=== PATIENT | male | born 1965 | race Caucasian/White ===

== ENCOUNTER 2016-09-12 08:25 | Outpatient (CLI) | payer BC, OTHER ==
[2016-09-12 15:07] LABS: BASOPHILS % (AUTO) 0.7 %; EOSINOPHILS # (AUTO) 0.1 10^3/uL (0.0-0.7); EOSINOPHILS % (AUTO) 2.2 %; HCT - HEMATOCRIT 44.8 % (42.0-52.0); HGB - HEMOGLOBIN 15.9 g/dL (14.0-18.0); LYMPHOCYTES # (AUTO) 2.3 10^3/uL (1.5-3.5); LYMPHOCYTES % (AUTO) 43.3 %; MEAN CORPUSCULAR HEMOGLOBIN 32.3 pg (27.0-31.0); MEAN CORPUSCULAR HGB CONC 35.5 g/dL (32.0-36.0); MEAN CORPUSCULAR VOLUME 90.8 fL (80.0-94.0); MEAN PLATELET VOLUME 8.6 fL (7.4-11.4); MONOCYTES # (AUTO) 0.4 10^3/uL (0.0-1.0); MONOCYTES % (AUTO) 8.5 %; NEUTROPHILS # (AUTO) 2.4 10^3/uL (1.5-6.6); NEUTROPHILS % (AUTO) 45.3 %; NUCLEATED RED BLOOD CELLS AUTO 0.1 /100WBC; RED BLOOD COUNT 4.94 10^6/uL (4.70-6.10); RED CELL DISTRIBUTION WIDTH 13.5 % (12.0-15.0); UNCORRECTED WHITE BLOOD COUNT 5.2 x10^3/uL; WHITE BLOOD COUNT 5.2 x10^3/uL (4.8-10.8)
[2016-09-12 16:20] LABS: ALBUMIN/GLOBULIN RATIO 1.9 (1.0-2.2); BILIRUBIN,TOTAL 1.2 mg/dL (0.2-1.0); BUN - BLOOD UREA NITROGEN 24 mg/dL (6-20); CALCIUM 9.5 mg/dL (8.5-10.3); CARBON DIOXIDE - CO2 29 mmol/L (21-32); CHLORIDE 100 mmol/L (101-111); CHOL/HDL RATIO 6.2 (<5.0); CHOLESTEROL 247 mg/dL; CREATININE 0.9 mg/dL (0.6-1.2); GFR - MDRD 89 (>89); GLUCOSE 116 mg/dL (70-100); HDL CHOLESTEROL 40 mg/dL; POTASSIUM 3.8 mmol/L (3.5-5.0); SODIUM 137 mmol/L (135-145); TOTAL PROTEIN 7.2 g/dL (6.7-8.2); TRIGLYCERIDES 237 mg/dL; VLDL CHOLESTEROL 47 mg/dL
== END 2016-09-12 08:26 | disposition home or self-care (01) ==
LOC: LAB.WCP 08:25
PROVIDERS: ATTEND Family Medicine
DX: E88.81 Metabolic syndrome and other insulin resistance (principal); Z12.5 Encounter for screening for malignant neoplasm of prostate
CPT/HCPCS: 36415; 80053; 80061; 84153; 84443; 85025

== ENCOUNTER 2019-03-12 19:44 | Outpatient (CLI) | payer OTHER | END 2019-03-12 23:59 | disposition critical access hospital (66) | LOC: EMS 19:44 | PROVIDERS: ATTEND Surgery | DX: R68.84 Jaw pain (principal); R07.9 Chest pain, unspecified; R42 Dizziness and giddiness | CPT/HCPCS: A0425; A0427 ==

== ENCOUNTER 2019-03-12 20:01 | Emergency (ER) | payer OTHER ==
--- NOTE | 2019-03-12 20:23 | ED Physician Documentation ---
PD HPI CHEST PAIN - Stated complaint Stated Complaint: CP/ L JAW PAIN - Chief complaint Chief Complaint: Cardiac - History obtained from History obtained from: Patient, EMS - History of Present Illness Timing - onset: Enter time (0), Today Timing - onset during: Light activity Timing - duration: Minutes Timing - details: Abrupt onset, Still present (much improved) Quality: Pressure, Tightness, Aching Location: Substernal, Left chest Radiation: Jaw Improved by: ASA, Other (fluids) Worsened by: Exertion Associated symptoms: Feeling faint / dizzy, General Weakness, Cough. No: Shortness of air, Diaphoresis, Nausea Similar symptoms before: Has not had sx before Recently seen: Not recently seen - Additional information Additional information: 53-year-old male with a history of hypertension has had a cough over the past week and this evening he was standing in his kitchen talking to his daughter when he developed pain in his jaw that then radiated into his chest. He went to lay down was a bit diaphoretic and called the medics. The patient was pale and diaphoretic on arrival of the medics with a bradycardia and hypotension. He was administered saline and aspirin and his blood pressure and pulse normalized. He is brought to the hospital with a prolonged QT interval and LVH on his electrocardiogram. The patient has a history of hypertension and is on some hydrochlorothiazide. He has otherwise been healthy has had a plate in his arm from a fracture in his 20s and surgery for an undescended testicle. He does not have a family history of coronary disease that he is aware of and he does have a family history of hypertension. The patient has previously been seen at [facility] by Dr. Malinda Roberto for his hypertension. Review of Systems Constitutional: denies: Fever, Chills, Myalgias, Fatigue Eyes: denies: Decreased vision Ears: denies: Ear pain Nose: reports: Congestion. denies: Rhinorrhea / runny nose Throat: denies: Sore throat Cardiac: reports: Chest pain / pressure. denies: Palpitations, Pedal edema, Calf pain Respiratory: reports: Dyspnea, Cough. denies: Hemoptysis, Wheezing GI: denies: Abdominal Pain, Nausea, Vomiting, Constipation, Diarrhea : denies: Dysuria, Frequency Skin: denies: Rash Musculoskeletal: reports: Neck pain. denies: Back pain, Extremity pain Neurologic: denies: Generalized weakness, Focal weakness, Numbness PD PAST MEDICAL HISTORY - Past Medical History Cardiovascular: Hypertension - Allergies Allergies/Adverse Reactions: Allergies Allergy/AdvReac Type Severity Reaction Status Date / Time No Known Drug Allergies Allergy Verified 03/12/19 20:06 PD ED PE NORMAL - Vitals Vital signs reviewed: Yes (diastolic hypertension) - General General: Alert and oriented X 3, No acute distress, Well developed/nourished, Other (Patient with good color and appears comfortable on arrival to the ED) - HEENT HEENT: Atraumatic, PERRL, EOMI - Neck Neck: Supple, no meningeal sign, No bony TTP - Cardiac Cardiac: RRR, No murmur - Respiratory Respiratory: No respiratory distress, Clear bilaterally - Abdomen Abdomen: Soft, Non tender - Back Back: No CVA TTP, No spinal TTP - Derm Derm: Normal color, Warm and dry, No rash - Extremities Extremities: No deformity, No edema - Neuro Neuro: Alert and oriented X 3, clinical director 2-12 intact, No motor deficit, No sensory deficit, Normal speech Eye Opening: Spontaneous Motor: Obeys Commands Verbal: Oriented GCS Score: 15 - Psych Psych: Normal mood, Normal affect Results - Vitals Vitals: Vital Signs - 24 hr 03/12/19 03/12/19 20:06 21:23 Temperature 36.6 C Heart Rate 69 56 L Respiratory 14 15 Rate Blood Pressure 122/89 H 112/73 O2 Saturation 97 96 Oxygen O2 Source Room air - EKG (time done) 2004 Rate: Rate (enter#) (53) [place]: LAD Intervals: Prolonged QT QRS: LVH, Poor R wave progression Ischemia: ST elevation c/w ischemia (subtle V2,V3 consistent with LVH), Non specific changes (lateral T wave inversions ) Compare to prior EKG: Old EKG unavailable Computer interpretation: Agree with computer - Labs Labs: Laboratory Tests 03/12/19 03/12/19 03/12/19 20:32 20:32 20:32 WBC 11.0 H RBC 4.52 L Hgb 14.7 Hct 39.9 L MCV 88.3 MCH 32.5 H MCHC 36.8 H RDW 13.1 Plt Count 127 L MPV 9.6 Neut # (Auto) 7.4 H Lymph # (Auto) 2.7 Rankin # (Auto) 0.6 Eos # (Auto) 0.2 Baso # (Auto) 0.1 Absolute Nucleated RBC 0.00 Nucleated RBC % 0.0 D-Dimer > 1050.0 H Sodium 138 Potassium 2.8 L Chloride 98 L Carbon Dioxide 30 Anion Gap 10.0 BUN 19 Creatinine 0.9 Estimated GFR (MDRD) 88 L Glucose 127 H Calcium 8.3 L Total Bilirubin 0.9 AST 21 ALT 25 Alkaline Phosphatase 47 Troponin I High Sens B-Natriuretic Peptide Total Protein 6.2 L Albumin 4.4 Globulin 1.8 L Albumin/Globulin Ratio 2.4 H Lipase 35 03/12/19 03/12/19 20:32 20:32 WBC RBC Hgb Hct MCV MCH MCHC RDW Plt Count MPV Neut # (Auto) Lymph # (Auto) Rankin # (Auto) Eos # (Auto) Baso # (Auto) Absolute Nucleated RBC Nucleated RBC % D-Dimer Sodium Potassium Chloride Carbon Dioxide Anion Gap BUN Creatinine Estimated GFR (MDRD) Glucose Calcium Total Bilirubin AST ALT Alkaline Phosphatase Troponin I High Sens 5.5 B-Natriuretic Peptide 21 Total Protein Albumin Globulin Albumin/Globulin Ratio Lipase - Rads (name of study) chest Radiology: Prelim report reviewed (Impression: Normal single view chest. ), EMP read indepedently, See rad report CT angio chest Radiology: Prelim report reviewed (Impression: Ascending aortic aneurysm with a type A dissection ending at the distal aortic arch. True lumen supplies 3 arch vessels.), EMP read indepedently, See rad report Procedures - Bedside sono Bedside sono by EMP: With the use of bedside ultrasound the heart is imaged and there does appear to be a pericardial effusion that is not causing tampenode. - IVC sono (time) 2012 Bedside IVC sono: IVC measures (cm) (2.3), IVC collapsed c insp (cm) (2.3), High CVP PD MEDICAL DECISION MAKING - ED course Complexity details: reviewed old records, reviewed results, re-evaluated patient, considered differential, d/w patient, d/w family ED course: 53-year-old male with acute jaw pain radiating into his chest was hypotensive at the scene improved with some fluids was found to have pericardial effusion on bedside ultrasound wide mediastinum on plain chest x-ray and aortic dissection on CT angiogram. The dissection looks like a type A dissection and Debakey classification type II. Transfer center was contacted at 21:45. Dr. Khan cardiothoracic surgeon at [facility] calls to the ED willing to accept the patient pending bed space availability. The [place] triage doctor calls here to inform us there is no bed available and the [facility] transfer center calls back able to take the patient and awaiting his arrival. [facility] surgeon Dr. Celaya is able to accept the patient at the [facility] and he will be transferred directly to the emergency department 22:45. 22:47 [facility] calls back able to accept the patient. The patient would prefer to go to [facility] where his brother works as a pediatric surgeon and final arrangements are made to transfer the patient to [facility]. The recommendation is to use cardene for blood pressure control as the heart rate is already in the low 60 range. The p isabel leaves the department here with stable vital signs and no neurologic deficit. Departure - Departure Disposition: 02 Transfer Acute Care Hosp Clinical Impression: Aortic dissection, thoracic Condition: Serious Discharge Date/Time: 03/12/19 23:05
[2019-03-12 20:36] LABS: BASOPHILS # (AUTO) 0.1 10^3/uL (0.0-0.1); BASOPHILS % (AUTO) 0.5 %; EOSINOPHILS # (AUTO) 0.2 10^3/uL (0.0-0.7); EOSINOPHILS % (AUTO) 1.5 %; HGB - HEMOGLOBIN 14.7 g/dL (14.0-18.0); LYMPHOCYTES # (AUTO) 2.7 10^3/uL (1.5-3.5); LYMPHOCYTES % (AUTO) 24.6 %; MEAN CORPUSCULAR HEMOGLOBIN 32.5 pg (27.0-31.0); MEAN CORPUSCULAR HGB CONC 36.8 g/dL (32.0-36.0); MEAN CORPUSCULAR VOLUME 88.3 fL (80.0-94.0); MEAN PLATELET VOLUME 9.6 fL (7.4-11.4); MONOCYTES # (AUTO) 0.6 10^3/uL (0.0-1.0); MONOCYTES % (AUTO) 5.7 %; NEUTROPHILS # (AUTO) 7.4 10^3/uL (1.5-6.6); NEUTROPHILS % (AUTO) 67.2 %; PLT - PLATELET COUNT 127 10^3/uL (130-450); RED BLOOD COUNT 4.52 10^6/uL (4.70-6.10); RED CELL DISTRIBUTION WIDTH 13.1 % (12.0-15.0)
[2019-03-12] MEDS ORDERED: IOVERSOL 320 100 ML VIAL IVP ONE ×2 (20:39→21:25)
[2019-03-12 20:54] LABS: ALBUMIN 4.4 g/dL (3.2-5.5); ALBUMIN/GLOBULIN RATIO 2.4 (1.0-2.2); BILIRUBIN,TOTAL 0.9 mg/dL (0.2-1.0); CALCIUM 8.3 mg/dL (8.5-10.3); CREATININE 0.9 mg/dL (0.6-1.2); TOTAL PROTEIN 6.2 g/dL (6.7-8.2)
[2019-03-12] MEDS ORDERED: POTASSIUM CHLOR 10 MEQ/100 ML 10 MEQ/100 ML BAG IV SCH (21:00)
--- NOTE | 2019-03-12 21:02 | XRAY Report ---
Reason: chest pain Procedure Date: 03/12/2019 Accession Number: [id number] / [id number] Procedure: XR - Chest 1 View X-Ray CPT Code: 58255 Final Report FULL RESULT: EXAM: CHEST RADIOGRAPHY EXAM DATE: 03/12/2019 08:26 PM. CLINICAL HISTORY: Chest pain. Cough for 2 weeks. COMPARISON: None. TECHNIQUE: 1 view. FINDINGS: Lungs/Pleura: No focal opacities evident. No pleural effusion. No pneumothorax. Mediastinum: Within exam limitations, the cardiomediastinal contour is normal. Other: None. IMPRESSION: Normal single view chest. RADIA
[2019-03-12] MEDS: IOVERSOL 320 100 ML VIAL IVP ONE ×2 (21:18→22:23)
[2019-03-12 21:23] VITALS: BP 112/73
--- NOTE | 2019-03-12 21:52 | CT Report ---
Reason: widened mediastinum Procedure Date: 03/12/2019 Accession Number: [id number] / [id number] Procedure: CT - ANGIO CHEST W/WO CPT Code: Final Report FULL RESULT: EXAM: CT ANGIOGRAM CHEST EXAM DATE: 03/12/2019 09:14 PM. CLINICAL HISTORY: Widened mediastinum. Productive cough for 2 weeks. COMPARISON: None. TECHNIQUE: Routine helical imaging was performed through the chest in the pulmonary arterial phase. IV Contrast: CE. Reconstructions: Coronal 3-D MIP reconstructions.Sagittal and coronal. In accordance with CT protocol optimization, one or more of the following dose reduction techniques were utilized for this exam: automated exposure control, adjustment of mA and/or KV based on patient size, or use of iterative reconstructive technique. FINDINGS: Pulmonary Arteries: Diagnostic quality: Adequate through the segmental arteries. No evidence for acute or chronic pulmonary emboli. RV/LV is within normal limits. There is no interventricular septal bowing. There is no reflux of contrast material in the IVC. Lungs/Pleura: No consolidation, nodules, or edema. No effusions or pneumothorax. Mediastinum: Dense pericardial effusion, likely hemorrhagic, 2 9 mm thick. No cardiac enlargement or adenopathy. Thoracic Aorta: The root of the aorta is 5.7 cm in diameter. The proximal arche is 3.7 cm in diameter. The distal arche is 3.3 cm in diameter. Partially outlined type A dissection noted with inadequate opacification to outline the distal arch and descending aorta detail. Upper Abdomen: Unremarkable. Other: None. IMPRESSION: 1. Type A aortic dissection, incompletely evaluated due to lack of contrast opacification of the arch and descending aorta, with a diameter of 5.7 cm at the root of the aorta, 3.7 cm proximal arch, 3.3 cm distal arch. 2. Small pericardial effusion, likely hemorrhagic. 3. Nondilated descending aorta and upper abdominal aorta, with insufficient contrast opacification to rule out dissection. RADIA The critical result notification system was initiated by Dr. Shahbaz Diane at 09:44 PM on 03/12/2019. The above critical result findings were discussed with Tom Tate by Dr. Shahbaz Diane at 09:48 PM on 03/12/2019.
--- NOTE | 2019-03-12 22:39 | CT Report ---
Reason: aortic disection Procedure Date: 03/12/2019 Accession Number: [id number] / [id number] Procedure: CT - ANGIO CHEST W/WO CPT Code: Final Report FULL RESULT: EXAM: CTA CHEST EXAM DATE: 03/12/2019 10:15 PM. CLINICAL HISTORY: Aortic dissection. Adequate aortic opacification on prior exam. COMPARISON: CHEST ANGIO 03/12/2019 9:12 PM. TECHNIQUE: Prior to and following intravenous administration of 80 cc of Optiray 320, multiplanar 3D/MIP reconstruction of the thoracic aorta was performed. In accordance with CT protocol optimization, one or more of the following dose reduction techniques were utilized for this exam: automated exposure control, adjustment of mA and/or KV based on patient size, or use of iterative reconstructive technique. FINDINGS: Vascular Structures: Ascending aortic aneurysm with a maximum diameter of 5.7 cm at the root of the aorta, 3.7 cm proximal arch, 3.3 cm distal arch. Type A dissection, ending at the distal arch, with the true lumen supplying the 3 arch vessels. No propagation into the normal thoracic and upper abdominal aorta. Lungs/Pleura: No consolidation, nodules, or edema. No effusions or pneumothorax. Mediastinum: Stable dense pericardial effusion up to 9 mm thick. No cardiac enlargement or adenopathy. Upper Abdomen: Unremarkable. Other: None. IMPRESSION: Ascending aortic aneurysm with type A dissection, ending at the distal aortic arch. The true lumen supplies the 3 arch vessels. RADIA
[2019-03-13] MEDS: IOVERSOL 320 100 ML VIAL IVP ONE (07:28)
== END 2019-03-12 23:05 | disposition short-term general hospital (02) ==
LOC: EDUNIT# → ED 20:01
DX: I71.01 Dissection of thoracic aorta (principal); I10 Essential (primary) hypertension
CPT/HCPCS: 36415; 71045; 71275; 80053; 83690; 83880; 84484; 85025; 85379; 93005; 99284; 99285; Q9967

== ENCOUNTER 2019-03-28 08:00 | Outpatient (CLI) | payer OTHER ==
[2019-03-28 18:48] LABS: BASOPHILS % (AUTO) 0.5 %; EOSINOPHILS # (AUTO) 0.2 10^3/uL (0.0-0.7); EOSINOPHILS % (AUTO) 2.1 %; LYMPHOCYTES # (AUTO) 1.4 10^3/uL (1.5-3.5); LYMPHOCYTES % (AUTO) 16.4 %; MEAN CORPUSCULAR HEMOGLOBIN 31.4 pg (27.0-31.0); MEAN CORPUSCULAR HGB CONC 32.3 g/dL (32.0-36.0); MEAN CORPUSCULAR VOLUME 97.4 fL (80.0-94.0); MEAN PLATELET VOLUME 8.9 fL (7.4-11.4); MONOCYTES # (AUTO) 0.6 10^3/uL (0.0-1.0); MONOCYTES % (AUTO) 7.8 %; NEUTROPHILS % (AUTO) 72.5 %; PLT - PLATELET COUNT 544 10^3/uL (130-450); RED CELL DISTRIBUTION WIDTH 13.8 % (12.0-15.0); WHITE BLOOD COUNT 8.2 x10^3/uL (4.8-10.8)
[2019-03-28 18:51] LABS: FERRITIN 626.9 ng/mL (23.9-336.2)
[2019-03-28 18:56] LABS: ALBUMIN 3.7 g/dL (3.2-5.5); ALBUMIN/GLOBULIN RATIO 1.1 (1.0-2.2); BILIRUBIN,TOTAL 0.4 mg/dL (0.2-1.0); CALCIUM 9.5 mg/dL (8.5-10.3); CREATININE 0.8 mg/dL (0.6-1.2); TOTAL PROTEIN 7.1 g/dL (6.7-8.2)
== END 2019-03-28 23:59 | disposition home or self-care (01) ==
LOC: LAB.WCP 08:00
PROVIDERS: ATTEND Family Medicine
DX: I10 Essential (primary) hypertension (principal); D64.9 Anemia, unspecified
CPT/HCPCS: 36415; 80053; 82728; 83540; 84443; 84466; 85025

== ENCOUNTER 2019-06-14 08:18 | Outpatient (CLI) | payer OTHER ==
[2019-06-14 13:00] LABS: BASOPHILS % (AUTO) 0.6 %; EOSINOPHILS # (AUTO) 0.2 10^3/uL (0.0-0.7); EOSINOPHILS % (AUTO) 2.9 %; HGB - HEMOGLOBIN 14.7 g/dL (14.0-18.0); LYMPHOCYTES # (AUTO) 1.6 10^3/uL (1.5-3.5); LYMPHOCYTES % (AUTO) 31.7 %; MEAN CORPUSCULAR HEMOGLOBIN 29.7 pg (27.0-31.0); MEAN CORPUSCULAR HGB CONC 33.4 g/dL (32.0-36.0); MEAN CORPUSCULAR VOLUME 88.9 fL (80.0-94.0); MEAN PLATELET VOLUME 10.7 fL (7.4-11.4); MONOCYTES # (AUTO) 0.4 10^3/uL (0.0-1.0); MONOCYTES % (AUTO) 8.1 %; NEUTROPHILS # (AUTO) 2.9 10^3/uL (1.5-6.6); NEUTROPHILS % (AUTO) 56.5 %; PLT - PLATELET COUNT 154 10^3/uL (130-450); RED BLOOD COUNT 4.95 10^6/uL (4.70-6.10); RED CELL DISTRIBUTION WIDTH 13.3 % (12.0-15.0); WHITE BLOOD COUNT 5.2 x10^3/uL (4.8-10.8)
[2019-06-14 13:13] LABS: ALBUMIN 4.4 g/dL (3.2-5.5); ALBUMIN/GLOBULIN RATIO 1.6 (1.0-2.2); ALKALINE PHOSPHATASE 73 IU/L (42-121); ALT ALANINE AMINOTRANSFERASE 17 IU/L (10-60); AST ASPARTATE AMINOTRANSFERASE 17 IU/L (10-42); BILIRUBIN,TOTAL 0.8 mg/dL (0.2-1.0); BUN - BLOOD UREA NITROGEN 17 mg/dL (6-20); CALCIUM 9.1 mg/dL (8.5-10.3); CARBON DIOXIDE - CO2 25 mmol/L (21-32); CHLORIDE 106 mmol/L (101-111); CHOLESTEROL 181 mg/dL; CREATININE 0.7 mg/dL (0.6-1.2); GLUCOSE 105 mg/dL (70-100); HDL CHOLESTEROL 36 mg/dL; LDL CHOLESTEROL,CALCULATED 125 mg/dL; LDL/HDL RATIO 3.5 (<3.6); SODIUM 137 mmol/L (135-145); TOTAL PROTEIN 7.1 g/dL (6.7-8.2); VLDL CHOLESTEROL 20 mg/dL
[2019-06-14 13:18] LABS: CREATININE,URINE 205.8 mg/dL; MICROALBUM/CREATININE RATIO,UR 7.3 ug/mg (<30.0); MICROALBUMIN,URINE 1.5 mg/dL (0-300.0)
[2019-06-14 13:20] LABS: HB2 TOTAL 15.4 g/dL; HEMOGLOBIN A1C 0.49 g/dL; HEMOGLOBIN A1C % 5.1 % (4.6-6.2)
== END 2019-06-14 23:59 | disposition home or self-care (01) ==
LOC: LAB.WCP 08:18
PROVIDERS: ATTEND Family Medicine
DX: D64.9 Anemia, unspecified (principal); I10 Essential (primary) hypertension; I71.00 Dissection of unspecified site of aorta; E88.81 Metabolic syndrome and other insulin resistance; E78.5 Hyperlipidemia, unspecified; Z12.5 Encounter for screening for malignant neoplasm of prostate
CPT/HCPCS: 36415; 80053; 80061; 82043; 82570; 83036; 83721; 84153; 84443; 85025

== ENCOUNTER 2020-02-25 08:20 | Outpatient (CLI) | payer OTHER ==
[2020-02-25 13:47] LABS: CALCIUM 9.4 mg/dL (8.5-10.3); CREATININE 0.8 mg/dL (0.6-1.2)
== END 2020-02-25 08:21 | disposition home or self-care (01) ==
LOC: LAB.WCP 08:20
PROVIDERS: ATTEND Nurse Practitioner
DX: I10 Essential (primary) hypertension (principal); Z98.890 Other specified postprocedural states; Z86.79 Personal history of other diseases of the circulatory system
CPT/HCPCS: 36415; 80048

== ENCOUNTER 2020-04-10 08:54 | Outpatient (CLI) | payer OTHER ==
[2020-04-10 13:02] LABS: CHOL/HDL RATIO 2.9 (<5.0); CHOLESTEROL 103 mg/dL; HDL CHOLESTEROL 35 mg/dL; LDL CHOLESTEROL,CALCULATED 55 mg/dL; LDL/HDL RATIO 1.6 (<3.6); VLDL CHOLESTEROL 13 mg/dL
== END 2020-04-10 23:59 | disposition home or self-care (01) ==
LOC: LAB.WCP 08:54
PROVIDERS: ATTEND Nurse Practitioner
DX: E78.5 Hyperlipidemia, unspecified (principal)
CPT/HCPCS: 36415; 80061; 83721

== ENCOUNTER 2020-07-06 08:00 | Outpatient (CLI) | payer OTHER ==
[2020-07-06 12:23] LABS: BASOPHILS % (AUTO) 0.6 %; EOSINOPHILS # (AUTO) 0.1 10^3/uL (0.0-0.7); EOSINOPHILS % (AUTO) 1.5 %; HCT - HEMATOCRIT 42.3 % (42.0-52.0); HGB - HEMOGLOBIN 14.8 g/dL (14.0-18.0); LYMPHOCYTES # (AUTO) 1.5 10^3/uL (1.5-3.5); LYMPHOCYTES % (AUTO) 27.8 %; MEAN CORPUSCULAR HEMOGLOBIN 31.8 pg (27.0-31.0); MEAN PLATELET VOLUME 10.6 fL (7.4-11.4); MONOCYTES # (AUTO) 0.4 10^3/uL (0.0-1.0); MONOCYTES % (AUTO) 8.1 %; NEUTROPHILS # (AUTO) 3.4 10^3/uL (1.5-6.6); NEUTROPHILS % (AUTO) 61.8 %; PLT - PLATELET COUNT 128 10^3/uL (130-450); RED BLOOD COUNT 4.65 10^6/uL (4.70-6.10); WHITE BLOOD COUNT 5.4 x10^3/uL (4.8-10.8)
[2020-07-06 12:24] LABS: ALBUMIN 4.8 g/dL (3.2-5.5); ALBUMIN/GLOBULIN RATIO 2.4 (1.0-2.2); ALKALINE PHOSPHATASE 41 IU/L (42-121); ALT ALANINE AMINOTRANSFERASE 21 IU/L (10-60); AST ASPARTATE AMINOTRANSFERASE 20 IU/L (10-42); BUN - BLOOD UREA NITROGEN 23 mg/dL (6-20); CALCIUM 9.8 mg/dL (8.5-10.3); CARBON DIOXIDE - CO2 30 mmol/L (21-32); CHLORIDE 105 mmol/L (101-111); CHOL/HDL RATIO 2.7 (<5.0); CHOLESTEROL 116 mg/dL; CREATININE 0.9 mg/dL (0.6-1.2); GFR - MDRD 88 (>89); GLUCOSE 105 mg/dL (70-100); HDL CHOLESTEROL 43 mg/dL; LDL CHOLESTEROL,CALCULATED 55 mg/dL; LDL/HDL RATIO 1.3 (<3.6); SODIUM 141 mmol/L (135-145); TOTAL PROTEIN 6.8 g/dL (6.7-8.2); TRIGLYCERIDES 91 mg/dL; VLDL CHOLESTEROL 18 mg/dL
[2020-07-06 12:29] LABS: CREATININE,URINE 119.5 mg/dL; MICROALBUMIN,URINE 0.6 mg/dL (0-300.0)
[2020-07-06 12:35] LABS: THYROID STIMULATING HORMONE 2.96 uIU/mL (0.34-5.60)
[2020-07-06 12:41] LABS: ESTIMATED AVERAGE GLUCOSE 100 mg/dL (70-100); HEMOGLOBIN A1c% 5.1 % (4.27-6.07)
== END 2020-07-06 23:59 | disposition home or self-care (01) ==
LOC: LAB.WCP 08:00
PROVIDERS: ATTEND Internal Medicine
DX: I10 Essential (primary) hypertension (principal); E78.5 Hyperlipidemia, unspecified; E88.81 Metabolic syndrome and other insulin resistance
CPT/HCPCS: 36415; 80053; 80061; 82043; 82570; 83036; 83721; 84443; 85025

== ENCOUNTER 2022-12-13 11:29 | Outpatient (CLI) | payer OTHER ==
[2022-12-13 18:04] LABS: CALCIUM 9.7 mg/dL (8.5-10.3); CREATININE 0.9 mg/dL (0.6-1.3); POTASSIUM 3.7 mmol/L (3.5-4.5)
== END 2022-12-13 11:30 | disposition home or self-care (01) ==
LOC: LAB.N 11:29
PROVIDERS: ATTEND Nurse Practitioner
DX: I10 Essential (primary) hypertension (principal)
CPT/HCPCS: 36415; 80048

== ENCOUNTER 2023-04-24 16:09 | Outpatient (CLI) | payer OTHER ==
--- NOTE | 2023-04-25 13:26 | XRAY Report ---
PROCEDURE: Ankle 3+V LT INDICATIONS: LEFT ANKLE SPRAIN TECHNIQUE: 3 views of the ankle were acquired. COMPARISON: None. FINDINGS: Bones: Ossification is present distal to the medial malleolus. Ankle mortise is normally aligned. N o suspicious bony lesions. Soft tissues: Lateral malleolar edema. Calcaneal spur is present.. Achilles tendon appears normal. IMPRESSION: Lateral malleolar edema. No acute fracture or dislocation. Occult injury cannot be excluded. Recommen d followup imaging in 7-10 days Reviewed by: Liliam Cagle MD on 04/25/2023 1:25 PM PST Approved by: Liliam Cagle MD on 04/25/2023 1:25 PM PST Station ID: [id number]
== END 2023-04-24 16:10 | disposition home or self-care (01) ==
LOC: DI 16:09
PROVIDERS: ATTEND Family Medicine
DX: S93.412A Sprain of calcaneofibular ligament of left ankle, initial encounter (principal); R60.0 Localized edema